=== PATIENT | male | born 1995 | race Caucasian/White ===

== ENCOUNTER 2019-06-28 15:24 | Emergency (ER) | payer MEDICAID, OTHER ==
[~2019-06-28] VITALS: Ht 170.2 cm; Wt 97.7 kg
[~2019-06-28 15:24] MED LIST: ESCI20TA PO; QUET200T PO
[2019-06-28 17:11] LABS: BASOPHILS % (AUTO) 0.6 % (0.0-2.0); HEMATOCRIT 46.4 % (41-53); HEMOGLOBIN 15.4 g/dL (13.5-17.5); LYMPHOCYTES # (AUTO) 2.1 K/uL (1.0-4.8); LYMPHOCYTES % (AUTO) 15.6 % (22.0-44.0); MEAN CORPUSCULAR HEMOGLOBIN 29.9 pg (26.0-34.0); MEAN CORPUSCULAR HGB CONC 33.2 G/dL (31.0-37.0); MEAN CORPUSCULAR VOLUME 90 fL (80-100); MONOCYTES % (AUTO) 7.5 % (2.0-9.0); NEUTROPHILS # (AUTO) 9.9 K/uL (1.8-7.7); NEUTROPHILS % (AUTO) 75.3 % (40.0-70.0); PLATELET COUNT (AUTO) 178 K/uL (150-450); RED BLOOD CELL COUNT(AUTO) 5.15 MIL/uL (4.50-5.90); RED CELL DISTRIBUTION WIDTH 14.3 % (11.5-14.5)
[2019-06-28 17:19] LABS: ANION GAP 4 mmol/L (8-16); CALCIUM, TOTAL 9.2 mg/dL (8.8-10.5); CARBON DIOXIDE 31 mmol/L (22-29); CHLORIDE 102 mmol/L (98-107); GLOMERULAR FILTR. RATE CALC > 60 mL/min (>60); GLUCOSE,RANDOM 83 mg/dL (70-110); POTASSIUM 4.4 mmol/L (3.5-5.1); SODIUM SERUM 137 mmol/L (136-145); UREA NITROGEN, BLOOD 12 mg/dL (7-18)
[2019-06-28 17:25] LABS: ALANINE AMINOTRANSFERASE 26 U/L (12-78); ALBUMIN 4.1 g/dL (3.4-5.0); ALKALINE PHOSPHATASE 67 U/L (46-116); ASPARTATE AMINOTRANSFERASE 13 U/L (15-37); BILIRUBIN,TOTAL 0.3 mg/dL (0.1-1.0); TOTAL PROTEIN, SERUM 7.1 g/dL (6.4-8.2)
[2019-06-28] MEDS ORDERED: PALI819S IM (18:14)
[2019-06-28 21:10] VITALS: BP 135/77
[2019-06-28 21:12] LABS: AMPHET/METH SCREEN,URINE NEGATIVE (NEGATIVE); BARBITURATE SCREEN, URINE NEGATIVE (NEGATIVE); BENZODIAZEPINES SCREEN,URINE NEGATIVE (NEGATIVE); CANNABINOID SCREEN,URINE NEGATIVE (NEGATIVE); COCAINE SCREEN,URINE NEGATIVE (NEGATIVE); METHADONE SCREEN, URINE NEGATIVE (NEGATIVE); OPIATE SCREEN,URINE NEGATIVE (NEGATIVE); PHENCYCLIDINE SCREEN,URINE NEGATIVE (NEGATIVE)
== END 2019-06-28 21:16 | disposition home or self-care (01) ==
LOC: EMS 15:26
DX: F20.9 Schizophrenia, unspecified (principal); F17.210 Nicotine dependence, cigarettes, uncomplicated; Z79.899 Other long term (current) drug therapy
CPT/HCPCS: 36415; 80053; 80307; 85025; 99285; G0480

== ENCOUNTER 2023-10-09 00:44 | Emergency (ER) | payer OTHER ==
[~2023-10-09] VITALS: Ht 175.3 cm; Wt 9.7 kg
[~2023-10-09 00:44] MED LIST changes: -ESCI20TA PO; +PALI819S IM; -QUET200T PO
[2023-10-09 01:14] VITALS: BP 111/77; PULSE 107; RESP 16; TEMP 98.9
[2023-10-09] MEDS: ACETAMINOPHEN 500 MG TABLET PO ONE (02:25)
== END 2023-10-09 04:07 | disposition home or self-care (01) ==
LOC: EMS 00:46
DX: S90.31XA Contusion of right foot, initial encounter (principal); F20.9 Schizophrenia, unspecified; F17.210 Nicotine dependence, cigarettes, uncomplicated; X58.XXXA Exposure to other specified factors, initial encounter; Y93.89 Activity, other specified; Y92.89 Other specified places as the place of occurrence of the external cause; Y99.8 Other external cause status
CPT/HCPCS: 99284; 73610-TC; 73630-TC; Z7502; Z7610

== ENCOUNTER 2023-10-11 23:40 | Emergency (ER) | payer OTHER ==
[~2023-10-11] VITALS: Ht 175.3 cm; Wt 97.0 kg
[2023-10-11 23:46] VITALS: BP 115/69; PULSE 61; RESP 20; TEMP 98
[2023-10-12] MEDS ORDERED: IBUP-1492 PO (00:37)
[2023-10-12] MEDS ORDERED: ACET-3385 PO (00:37)
[2023-10-12] MEDS ORDERED: LIDO700A15 TP (00:37)
[2023-10-12] MEDS: LIDOCAINE 5% TRANSDERMAL PATCH TD ONE (00:44)
[2023-10-12] MEDS: ACETAMINOPHEN 500 MG TABLET PO ONE (00:44)
== END 2023-10-12 01:25 | disposition home or self-care (01) ==
LOC: EMS 23:40
DX: M54.6 Pain in thoracic spine (principal); F20.9 Schizophrenia, unspecified; F17.210 Nicotine dependence, cigarettes, uncomplicated
CPT/HCPCS: 99282; Z7502; Z7610

== ENCOUNTER 2023-10-22 00:32 | Emergency (ER) | payer OTHER ==
[~2023-10-22] VITALS: Ht 175.3 cm; Wt 97.0 kg
[~2023-10-22 00:32] MED LIST changes: +ACET-3385 PO; +IBUP-1492 PO; +LIDO700A15 TP
[2023-10-22 01:11] VITALS: BP 130/84; PULSE 97; RESP 16; TEMP 98
[2023-10-22] MEDS: KETOROLAC TROMETHAMINE 30 MG/ML VIAL IM ONE (01:32)
[2023-10-22] MEDS: LIDOCAINE 5% TRANSDERMAL PATCH TD ONE (01:33)
== END 2023-10-22 01:42 | disposition home or self-care (01) ==
LOC: EMS 00:34
DX: M54.6 Pain in thoracic spine (principal); F20.9 Schizophrenia, unspecified; F17.210 Nicotine dependence, cigarettes, uncomplicated
CPT/HCPCS: 99283; 96372; J1885

== ENCOUNTER 2024-02-24 21:01 | Emergency (ER) | payer OTHER ==
[~2024-02-24] VITALS: Ht 175.3 cm; Wt 89.7 kg
[2024-02-24 21:19] VITALS: TEMP 97.6
[2024-02-24 22:18] LABS: BASOPHILS % (AUTO) 0.2 % (0.0-2.0); EOSINOPHILS % (AUTO) 0.9 % (1.0-6.0); HEMATOCRIT 44.6 % (41-53); HEMOGLOBIN 14.4 g/dL (13.5-17.5); LYMPHOCYTES # (AUTO) 1.3 K/uL (1.0-4.8); LYMPHOCYTES % (AUTO) 12.3 % (22.0-44.0); MEAN CORPUSCULAR HEMOGLOBIN 29.3 pg (26.0-34.0); MEAN CORPUSCULAR HGB CONC 32.2 G/dL (31.0-37.0); MEAN CORPUSCULAR VOLUME 91 fL (80-100); MONOCYTES # (AUTO) 0.6 K/uL (0.1-1.0); MONOCYTES % (AUTO) 5.8 % (2.0-9.0); NEUTROPHILS # (AUTO) 8.3 K/uL (1.8-7.7); NEUTROPHILS % (AUTO) 80.8 % (40.0-70.0); PLATELET COUNT (AUTO) 208 K/uL (150-450); WHITE BLOOD COUNT (AUTO) 10.3 K/uL (4.5-11.0)
[2024-02-24 22:25] LABS: ANION GAP 9 mmol/L (8-16); CALCIUM, TOTAL 8.4 mg/dL (8.8-10.5); CARBON DIOXIDE 28 mmol/L (22-29); CHLORIDE 101 mmol/L (98-107); CREATININE 0.92 mg/dL (0.60-1.30); GLOMERULAR FILTR. RATE CALC > 60 mL/min (>60); GLUCOSE,RANDOM 169 mg/dL (70-110); POTASSIUM 3.9 mmol/L (3.5-5.1); SODIUM SERUM 138 mmol/L (136-145); UREA NITROGEN, BLOOD 9 mg/dL (7-18)
[2024-02-24 22:32] LABS: LACTIC ACID 1.8 mmol/L (0.4-2.0)
[2024-02-24 22:39] LABS: ALANINE AMINOTRANSFERASE 17 U/L (12-78); ALBUMIN 3.5 g/dL (3.4-5.0); ALKALINE PHOSPHATASE 77 U/L (46-116); ASPARTATE AMINOTRANSFERASE 6 U/L (15-37); BILIRUBIN,TOTAL 0.5 mg/dL (0.1-1.0); TOTAL PROTEIN, SERUM 6.7 g/dL (6.4-8.2)
[2024-02-24] MEDS: SODIUM CHLORIDE 0.9% 1,000 ML IV ONE (23:16)
[2024-02-24 23:18] LABS: APPEARANCE,URINE CLEAR (CLEAR); BILIRUBIN,URINE NEGATIVE (NEGATIVE); COLOR,URINE COLORLESS (YELLOW); GLUCOSE, URINE (UA) NEGATIVE (NEGATIVE); KETONES,URINE NEGATIVE (NEGATIVE); LEUKOCYTE ESTERASE ,URINE NEGATIVE (NEGATIVE); NITRATE,URINE NEGATIVE (NEGATIVE); OCCULT BLOOD,URINE NEGATIVE (NEGATIVE); PROTEIN,URINE NEGATIVE (NEGATIVE); SPECIFIC GRAVITIY, URINE 1.005 (1.003-1.030); UROBILINOGEN,URINE <=1.0 mg/dL (<=1.0)
[2024-02-24 23:37] LABS: ALCOHOL, URINE DRUG SCREEN NEGATIVE (NEGATIVE); AMPHET/METH SCREEN,URINE POSITIVE (NEGATIVE); BARBITURATE SCREEN, URINE NEGATIVE (NEGATIVE); BENZODIAZEPINES SCREEN,URINE NEGATIVE (NEGATIVE); CANNABINOID SCREEN,URINE NEGATIVE (NEGATIVE); COCAINE SCREEN,URINE NEGATIVE (NEGATIVE); METHADONE SCREEN, URINE NEGATIVE (NEGATIVE); OPIATE SCREEN,URINE NEGATIVE (NEGATIVE); PHENCYCLIDINE SCREEN,URINE NEGATIVE (NEGATIVE)
[2024-02-25 00:35] VITALS: BP 117/76; PULSE 96; RESP 14; O2SAT 93
== END 2024-02-25 01:14 | disposition home or self-care (01) ==
LOC: EMS 21:01
DX: T40.411A Poisoning by fentanyl or fentanyl analogs, accidental (unintentional), initial encounter (principal); F19.10 Other psychoactive substance abuse, uncomplicated; R41.82 Altered mental status, unspecified; R07.9 Chest pain, unspecified; I47.19 Other supraventricular tachycardia; F17.210 Nicotine dependence, cigarettes, uncomplicated; F20.9 Schizophrenia, unspecified; Y92.89 Other specified places as the place of occurrence of the external cause
CPT/HCPCS: 99285; 96360; 70450; 71045; 80053; 81003; 83605; 85025; 36415; 93005; 80307; G0480; J7030

== ENCOUNTER 2024-03-25 20:35 | Emergency (ER) | payer OTHER ==
[~2024-03-25] VITALS: Ht 175.3 cm; Wt 90.9 kg
[2024-03-25 20:43] VITALS: TEMP 98.7
[2024-03-25] MEDS: PROPARACAINE HCL 0.5% 15 ML OPHTHALMIC SOLUTION OU ONE (22:08)
[2024-03-25] MEDS: IBUPROFEN 600 MG TABLET PO ONE (22:37)
[2024-03-25 23:53] VITALS: BP 130/80; PULSE 90; RESP 18; O2SAT 99
== END 2024-03-25 23:56 | disposition home or self-care (01) ==
LOC: EMS 20:35
DX: S00.83XA Contusion of other part of head, initial encounter (principal); F20.9 Schizophrenia, unspecified; F17.210 Nicotine dependence, cigarettes, uncomplicated; F15.90 Other stimulant use, unspecified, uncomplicated; Y08.89XA Assault by other specified means, initial encounter; Y93.89 Activity, other specified; Y92.89 Other specified places as the place of occurrence of the external cause; Y99.8 Other external cause status
CPT/HCPCS: 70486; 99284; J9035; Z7502; Z7610

== ENCOUNTER 2024-04-12 21:25 | Emergency (ER) | payer OTHER ==
[~2024-04-12] VITALS: Ht 177.8 cm; Wt 75.0 kg
[2024-04-12 21:34] VITALS: BP 114/82; PULSE 74; RESP 16; TEMP 96; O2SAT 97
[2024-04-12] MEDS ORDERED: BUPR1TAB46 SL (23:20)
[2024-04-12] MEDS: LORazepam 2 MG TABLET PO ONE (23:40)
[2024-04-12] MEDS: BUPRENORPHINE HCL/NALOXONE HCL 8-2 MG SUBLINGUAL TABLET SL ONE (23:41)
== END 2024-04-12 23:50 | disposition home or self-care (01) ==
LOC: EMS 21:25
DX: F41.9 Anxiety disorder, unspecified (principal); F20.9 Schizophrenia, unspecified; F11.20 Opioid dependence, uncomplicated; F17.210 Nicotine dependence, cigarettes, uncomplicated
CPT/HCPCS: 99283

== ENCOUNTER 2024-05-17 12:34 | Emergency (ER) | payer OTHER ==
[~2024-05-17] VITALS: Ht 177.8 cm; Wt 98.2 kg
[~2024-05-17 12:34] MED LIST changes: +BUPR1TAB46 SL
[2024-05-17 12:38] VITALS: TEMP 98.1
[2024-05-17] MEDS ORDERED: LITH300T PO (12:45)
[2024-05-17] MEDS: HYDROCORTISONE 1% 30 GM CREAM TP ONE (14:32)
[2024-05-17] MEDS: CETIRIZINE HCL 10 MG TABLET PO ONE (14:32)
[2024-05-17 14:35] VITALS: BP 122/75; PULSE 76; RESP 16; O2SAT 99
[2024-05-17] MEDS ORDERED: CETI-450 PO (15:00)
== END 2024-05-17 15:13 | disposition home or self-care (01) ==
LOC: EMS 12:34
DX: R21 Rash and other nonspecific skin eruption (principal); F20.9 Schizophrenia, unspecified; F17.210 Nicotine dependence, cigarettes, uncomplicated; F15.90 Other stimulant use, unspecified, uncomplicated; Z79.899 Other long term (current) drug therapy
CPT/HCPCS: 99283

== ENCOUNTER → 2024-12-09 | Emergency (ER) | payer OTHER ==
[~2024-12-09] VITALS: Ht 175.3 cm; Wt 90.9 kg
[~2024-12-09] MED LIST changes: -ACET-3385 PO; -BUPR1TAB46 SL; +CETI-432 PO; -IBUP-1492 PO; -LIDO700A15 TP; +LITH300T PO; -PALI819S IM
[2024-12-09] MEDS: BUPRENORPHINE HCL/NALOXONE HCL 8-2 MG SUBLINGUAL TABLET SL ONE (20:26)
[2024-12-09 20:30] VITALS: BP 141/75; PULSE 70; RESP 16; TEMP 97.3; O2SAT 100
== END | disposition still patient (30) ==
LOC: EMS 19:50
DX: Z51.81 Encounter for therapeutic drug level monitoring (principal); Z76.0 Encounter for issue of repeat prescription; Z79.899 Other long term (current) drug therapy
CPT/HCPCS: 99283

== ENCOUNTER 2025-02-10 08:42 | Emergency (ER) | payer OTHER ==
[~2025-02-10] VITALS: Ht 175.3 cm; Wt 93.0 kg
[~2025-02-10 08:42] MED LIST changes: -CETI-432 PO; +CETI10TA77 PO
[2025-02-10 08:48] VITALS: TEMP 98
[2025-02-10 11:40] VITALS: BP 126/84; PULSE 78; RESP 16; O2SAT 99
== END 2025-02-10 11:42 | disposition home or self-care (01) ==
LOC: EMS 08:43
DX: F11.20 Opioid dependence, uncomplicated (principal); F20.9 Schizophrenia, unspecified; F17.210 Nicotine dependence, cigarettes, uncomplicated; R50.9 Fever, unspecified; R11.10 Vomiting, unspecified; R19.7 Diarrhea, unspecified; Z79.899 Other long term (current) drug therapy
CPT/HCPCS: 99283; Z7502